=== PATIENT | male | born 1955 ===

== ENCOUNTER 2021-10-26 07:45 | Inpatient (IN) | payer OTHER ==
[~2021-10-26] VITALS: Ht 180.3 cm; Wt 102.1 kg
[2021-10-26] MEDS ORDERED: COZAAR50 MG PO (09:52)
[2021-10-26] MEDS ORDERED: TOPROL XL50 M1 PO (09:52)
[2021-10-26] MEDS ORDERED: CLONAZEPAM1 MG PO (09:53)
[2021-10-26] MEDS ORDERED: FAMOTIDINE40 MG PO (09:53)
[2021-10-26] MEDS ORDERED: TAMS0.4C PO (09:54)
[2021-10-26] MEDS ORDERED: SERTRALINE HCL50 MG PO (09:55)
[2021-10-30] MEDS ORDERED: DORZOLAMIDE HCL10 ML (09:21)
[2021-10-30] MEDS ORDERED: BETAMETHASONE D15 G5 (09:21)
[2021-10-30] MEDS ORDERED: PANTOPRAZOLE SO40 MG (09:21)
[2021-11-02] MEDS ORDERED: ULTRAM50 MG PO (09:56)
[2021-11-02] MEDS ORDERED: LEVSIN/SL0.125 MG SL (09:57)
[2021-11-02] MEDS ORDERED: INTESTINEX680 M1 PO (09:57)
== END 2021-11-02 12:40 | disposition home or self-care (01) | DRG 330 ==
LOC: ADM 07:45 → SURH 10-30 06:00 → O/R 10-30 06:00 → SURH 10-30 07:00 → CIR.AMB 10-30 07:45 → EDSTATUS 10-30 07:45 → SURH 10-30 13:12
PROVIDERS: ADMIT Surgery; ATTEND Surgery
PROC: 4A12X4Z Monitoring of Cardiac Electrical Activity, External Approach (ICD-10-PCS; 2021-10-30)
PROC: 0DTN4ZZ Resection of Sigmoid Colon, Percutaneous Endoscopic Approach (ICD-10-PCS; principal; 2021-10-31)
PROC: 0DBP4ZZ Excision of Rectum, Percutaneous Endoscopic Approach (ICD-10-PCS; 2021-10-31)
PROC: 07BB4ZZ Excision of Mesenteric Lymphatic, Percutaneous Endoscopic Approach (ICD-10-PCS; 2021-10-31)
PROC: 0DJD8ZZ Inspection of Lower Intestinal Tract, Via Natural or Artificial Opening Endoscopic (ICD-10-PCS; 2021-10-31)
DX: D37.4 Neoplasm of uncertain behavior of colon (principal); K62.5 Hemorrhage of anus and rectum; K57.30 Diverticulosis of large intestine without perforation or abscess without bleeding; Z20.822 Contact with and (suspected) exposure to COVID-19; I11.9 Hypertensive heart disease without heart failure; F41.8 Other specified anxiety disorders; G47.39 Other sleep apnea